=== PATIENT | female | born 1950 | race Caucasian/White ===

== ENCOUNTER 2020-04-29 17:05 | Observation (INO) ==
[2020-04-29 18:20] LABS: Basophils # 0.1 K/mcL (0.0-0.2); Basophils % 0.3 %; Eosinophils # 0.3 K/mcL (0.0-0.6); Eosinophils % 1.8 %; Hematocrit 37.2 % (35.3-44.9); Hemoglobin 11.8 g/dL (11.5-15.4); Immature Granulocytes % 0.8 % (0-4); Lymphocytes # 1.7 K/mcL (0.6-4.6); Lymphocytes % 11.6 %; Mean Corpuscular HGB Conc 31.7 g/dL (31.6-35.5); Mean Corpuscular Hemoglobin 26.8 pg (28.0-33.3); Mean Corpuscular Volume 84.5 fL (83.0-100.0); Mean Platelet Volume 9.9 fL (9.4-12.4); Monocytes # 1.5 K/mcL (0.0-1.3); Monocytes % 10.5 %; Neutrophils # 10.9 K/mcL (1.6-8.9); Platelet Count 217 K/mcL (140-400); Red Cell Distribution Width 14.6 % (11.5-14.5); White Blood Count 14.5 K/mcL (4.3-11.1)
[2020-04-29 18:22] LABS: Amphetamine Screen,Urine Negative ng/mL (Cutoff=1000); Barbiturate Screen,Urine Negative ng/mL (Cutoff=200); Benzodiazepines Screen,Urine Negative ng/mL (Cutoff=200); Cannabinoid Screen,Urine Negative ng/mL (Cutoff = 50); Cocaine Screen,Urine Negative ng/mL (Cutoff= 300); Opiate Screen,Urine Negative ng/mL (Cutoff=300); Phencyclidine Screen,Urine Negative ng/mL (Cutoff=25)
[2020-04-29 18:32] LABS: Bilirubin,Urine Negative (Negative); Blood,Urine Trace (Negative); Clarity,Urine Clear (Clear); Color,Urine Light-Yellow (Yellow); Glucose,Urine (UA) Normal (Normal); Ketones,Urine 10 mg/dL (Negative); Leukocyte Esterase,Urine Negative (Negative); Nitrite,Urine Negative (Negative); Protein,Urine Trace mg/dL (Neg-Trace); RBC,Urine 0-3 per hpf (0-3); Squamous Epithelial Cell,Urine Few per hpf (None-Few); Urobilinogen,Urine Normal (Normal); WBC,Urine 0-3 per hpf (0-3)
[2020-04-29 18:44] LABS: Alanine Aminotransferase 6 Units/L (7-52); Albumin 3.4 g/dL (3.5-5.7); Alkaline Phosphatase 54 Units/L (34-104); Aspartate Amino Transferase 11 Units/L (13-39); BUN/Creatinine Ratio 17 (6-26); Bilirubin,Direct 0.2 mg/dL (0.0-0.2); Bilirubin,Indirect 1.1 mg/dL (0.0-1.0); Bilirubin,Total 1.3 mg/dL (0.3-1.0); Blood Urea Nitrogen 18 mg/dL (8-23); Calcium 8.6 mg/dL (8.6-10.3); Carbon Dioxide 27 mEq/L (23-29); Chloride 98 mEq/L (98-107); Ethanol < 10 mg/dL (Less than 10); Globulin 3.3 g/dL (2.4-3.5); Glucose 195 mg/dL (70-105); Osmolality,Calculated 281 (280-300); Potassium 3.9 mEq/L (3.5-5.1); Sodium 132 mEq/L (136-145); Total Protein 6.7 g/dL (6.4-8.9); Troponin I 0.15 ng/mL (< 0.04); eGFR For African Americans > 60 (> 60); eGFR For Non-African Americans 53 (> 60)
[2020-04-29] MEDS ORDERED: Naloxone 0.4 MG/ML INJ IVP PRN ×2 (21:46→21:51)
[2020-04-29] MEDS ORDERED: Ondansetron ODT 4 MG TAB.RAPDIS SL PRN (21:46)
[2020-04-29] MEDS ORDERED: Acetaminophen 325 MG TABLET PO PRN (21:46)
[2020-04-29] MEDS ORDERED: *HR* Heparin 5,000 UNIT/ML VIAL IVP ONE (21:51)
[2020-04-29] MEDS ORDERED: *HR* Heparin 5,000 UNIT/ML VIAL IVP PRN ×2 (21:51)
[2020-04-29] MEDS ORDERED: Perflutren Lipid Microsphere 1.3 ML in 0.9 % Sodium Chloride 8.7 ML IVP PRN (21:58)
[2020-04-29] MEDS ORDERED: Heparin 25,000UNIT/250ML 1/2NS 25,000 UNIT/250 ML IV.SOLN IVC SCH (22:00)
[2020-04-29] MEDS ORDERED: *HR* Dextrose 50 % in Water (Vial) 50 ML VIAL IVP PRN (22:06)
[2020-04-29] MEDS ORDERED: D5% in Water 1,000 ML IVC PRN (22:06)
[2020-04-29] MEDS ORDERED: Dextrose Gel 15 GM/37.5 ML TUBE PO PRN ×2 (22:06)
[2020-04-29 22:25] LABS: Hematocrit 36.5 % (35.3-44.9); Hemoglobin 11.7 g/dL (11.5-15.4); Mean Corpuscular HGB Conc 32.1 g/dL (31.6-35.5); Mean Corpuscular Hemoglobin 26.9 pg (28.0-33.3); Mean Corpuscular Volume 83.9 fL (83.0-100.0); Platelet Count 211 K/mcL (140-400); Red Blood Count 4.35 M/mcL (3.82-4.97); Red Cell Distribution Width 14.5 % (11.5-14.5)
[2020-04-29 22:35] LABS: Estimated Average Glucose 169 mg/dl
[2020-04-29 22:43] LABS: INR 2.4; Prothrombin Time 27.6 Seconds (9.4-12.1)
[2020-04-29 22:51] LABS: Heparin anti-factor XA UFH 1.96 IU/mL (0.30-0.70)
[2020-04-29] MEDS: Insulin LISPRO 300 UNITS/3 ML VIAL SQ SCH (23:49)
[2020-04-30 02:20] LABS: Basophils % 0.3 %; Eosinophils # 0.2 K/mcL (0.0-0.6); Eosinophils % 1.8 %; Hematocrit 35.3 % (35.3-44.9); Immature Granulocytes % 0.9 % (0-4); Lymphocytes # 1.6 K/mcL (0.6-4.6); Lymphocytes % 12.3 %; Mean Corpuscular HGB Conc 31.2 g/dL (31.6-35.5); Mean Corpuscular Hemoglobin 25.8 pg (28.0-33.3); Mean Corpuscular Volume 82.7 fL (83.0-100.0); Mean Platelet Volume 9.9 fL (9.4-12.4); Monocytes # 1.2 K/mcL (0.0-1.3); Monocytes % 9.8 %; Neutrophils # 9.5 K/mcL (1.6-8.9); Platelet Count 193 K/mcL (140-400); Red Blood Count 4.27 M/mcL (3.82-4.97); Red Cell Distribution Width 14.4 % (11.5-14.5); Segmented Neutrophils % 74.9 %; White Blood Count 12.7 K/mcL (4.3-11.1)
[2020-04-30 02:25] LABS: INR 2.3; Prothrombin Time 25.8 Seconds (9.4-12.1)
[2020-04-30 02:46] LABS: BUN/Creatinine Ratio 17 (6-26); Blood Urea Nitrogen 16 mg/dL (8-23); Calcium 8.1 mg/dL (8.6-10.3); Carbon Dioxide 27 mEq/L (23-29); Chloride 99 mEq/L (98-107); Glucose 178 mg/dL (70-105); Osmolality,Calculated 286 (280-300); Phosphorous 1.6 mg/dL (2.7-4.5); Potassium 3.6 mEq/L (3.5-5.1); Sodium 135 mEq/L (136-145); eGFR For African Americans > 60 (> 60); eGFR For Non-African Americans 58 (> 60)
[2020-04-30] MEDS: 0.9 % Sodium Chloride 1,000 ML IVC SCH ×2 (03:05→14:06)
[2020-04-30] MEDS: Insulin LISPRO 300 UNITS/3 ML VIAL SQ SCH ×5 (07:47→21:04)
[2020-04-30] MEDS ORDERED: Furosemide 40 MG TABLET PO SCH (09:00)
[2020-04-30] MEDS ORDERED: lisinopriL 20 MG TABLET PO SCH (09:15)
[2020-04-30] MEDS ORDERED: lisinopriL 20 MG TABLET PO ONE (11:39)
[2020-04-30] MEDS: *HR* Rivaroxaban 10 MG TABLET PO SCH (11:56)
[2020-04-30] MEDS ORDERED: Furosemide 40 MG/4 ML VIAL IVP ONE (15:29)
[2020-04-30] MEDS: *HR* OxyCODONE Immed Rel 5 MG TABLET PO PRN (17:10)
[2020-05-01 05:23] LABS: Basophils % 0.3 %; Eosinophils # 0.5 K/mcL (0.0-0.6); Eosinophils % 3.7 %; Hematocrit 36.1 % (35.3-44.9); Hemoglobin 11.2 g/dL (11.5-15.4); Immature Granulocytes % 0.7 % (0-4); Lymphocytes # 1.7 K/mcL (0.6-4.6); Lymphocytes % 12.9 %; Mean Platelet Volume 9.7 fL (9.4-12.4); Monocytes # 1.3 K/mcL (0.0-1.3); Monocytes % 9.6 %; Neutrophils # 9.5 K/mcL (1.6-8.9); Platelet Count 234 K/mcL (140-400); Red Cell Distribution Width 14.6 % (11.5-14.5); Segmented Neutrophils % 72.8 %
[2020-05-01 05:41] LABS: Calcium 8.3 mg/dL (8.6-10.3); Phosphorous 2.7 mg/dL (2.7-4.5); Potassium 3.7 mEq/L (3.5-5.1)
[2020-05-01] MEDS: Furosemide 40 MG TABLET PO SCH ×2 (06:05→17:30)
[2020-05-01] MEDS: lisinopriL 20 MG TABLET PO SCH (08:23)
[2020-05-01] MEDS: *HR* Rivaroxaban 10 MG TABLET PO SCH (08:23)
[2020-05-01] MEDS: Insulin LISPRO 300 UNITS/3 ML VIAL SQ SCH ×4 (09:53→20:36)
[2020-05-01] MEDS: *HR* OxyCODONE Immed Rel 5 MG TABLET PO PRN (17:31)
[2020-05-02] MEDS: *HR* OxyCODONE Immed Rel 5 MG TABLET PO PRN (00:45)
[2020-05-02] MEDS ORDERED: *HR* OxyCODONE Immed Rel 5 MG TABLET PO ONE (04:37)
[2020-05-02 06:26] VITALS: BP 163/68
[2020-05-02] MEDS: Furosemide 40 MG TABLET PO SCH (08:19)
[2020-05-02] MEDS: lisinopriL 20 MG TABLET PO SCH (08:19)
[2020-05-02] MEDS: *HR* Rivaroxaban 10 MG TABLET PO SCH (08:20)
[2020-05-02] MEDS: Insulin LISPRO 300 UNITS/3 ML VIAL SQ SCH ×2 (08:20→12:30)
== END 2020-05-02 13:09 | disposition home or self-care (01) ==
LOC: EMEROOARM 17:05 → 3BNU 17:05 → SUATTDRO 21:09 → 3BNU 21:40
PROVIDERS: ADMIT Family Medicine; ATTEND Internal Medicine

== ENCOUNTER 2022-02-10 15:33 | Inpatient (IN) ==
[2022-02-10] MEDS ORDERED: Ondansetron 4 MG/2 ML VIAL IVP PRN (19:47)
[2022-02-10] MEDS ORDERED: Naloxone 0.4 MG/ML INJ IVP PRN (19:47)
[2022-02-10] MEDS ORDERED: Ipratropium/Albuterol Neb 3 ML IH PRN (19:50)
[2022-02-10] MEDS ORDERED: *HR* Dextrose 50 % in Water (Syg) 50 ML SYRINGE IVP PRN (19:51)
[2022-02-10] MEDS ORDERED: Dextrose Gel 15 GM/37.5 ML TUBE PO PRN ×2 (19:51)
[2022-02-10] MEDS ORDERED: D5% in Water 1,000 ML IVC PRN (19:51)
[2022-02-10] MEDS ORDERED: Ringers Solution, Lactated 1,000 ML IVC SCH (20:00)
[2022-02-10] MEDS: Insulin LISPRO 300 UNITS/3 ML VIAL SUBQ SCH (20:28)
[2022-02-10] MEDS: Ringers Solution, Lactated 1,000 ML IVC SCH (21:11)
[2022-02-11 00:36] LABS: Basophils % 0.1 %; Hematocrit 31.3 % (35.3-44.9); Hemoglobin 9.3 g/dL (11.5-15.4); Immature Granulocytes % 1.5 % (0-4); Lymphocytes % 4.2 %; Mean Corpuscular HGB Conc 29.7 g/dL (31.6-35.5); Mean Corpuscular Hemoglobin 26.1 pg (28.0-33.3); Mean Corpuscular Volume 87.9 fL (83.0-100.0); Mean Platelet Volume 10.1 fL (9.4-12.4); Monocytes # 2.1 K/mcL (0.0-1.3); Monocytes % 9.4 %; Neutrophils # 19.3 K/mcL (1.6-8.9); Platelet Count 214 K/mcL (140-400); Red Blood Count 3.56 M/mcL (3.82-4.97); Red Cell Distribution Width 15.1 % (11.5-14.5); Segmented Neutrophils % 84.8 %; White Blood Count 22.7 K/mcL (4.3-11.1)
[2022-02-11 00:42] LABS: VBG Base Excess 2 mEq/L; VBG Chloride 98 mEq/L (98-107); VBG Glucose 190 mg/dl (65-95); VBG HCO3 30 mEq/L (21-27); VBG Ionized Calcium 1.19 mmol/L (1.15-1.35); VBG Oxygen Saturation 88 %; VBG PCO2 67 mmHg (41-51); VBG PH 7.26 pH Units (7.32-7.42); VBG PO2 65 mmHg (25-50); VBG Total CO2 32 mEq/L
[2022-02-11 00:49] LABS: Bilirubin,Direct 0.3 mg/dL (0.0-0.2); Bilirubin,Indirect 0.9 mg/dL (0.0-1.0); Bilirubin,Total 1.2 mg/dL (0.3-1.0); Calcium 8.4 mg/dL (8.6-10.3); Globulin 2.9 g/dL (2.4-3.5); Magnesium 1.9 mg/dL (1.6-2.6); Phosphorous 4.6 mg/dL (2.7-4.5); Total Protein 5.9 g/dL (6.4-8.9); Troponin I 0.03 ng/mL (< 0.04)
[2022-02-11 01:02] LABS: Thyroid Stimulating Hormone 1.342 mcIU/mL (0.340-5.600)
[2022-02-11 01:03] LABS: INR 1.4; Prothrombin Time 15.3 Seconds (9.4-12.1)
[2022-02-11 01:18] LABS: Adenovirus Not Detected (Not Detect); Bordetella Pertussis Not Detected (Not Detect); Chlamydophila pneumoniae Not Detected (Not Detect); Coronavirus 229E Not Detected (Not Detect); Coronavirus HKU1 Not Detected (Not Detect); Coronavirus NL63 Not Detected (Not Detect); Coronavirus OC43 Not Detected (Not Detect); Human Metapneumovirus Not Detected (Not Detect); Human Rhinovirus/Enterovirus Not Detected (Not Detect); Influenza A Subtype 2009 H1 Not Detected (Not Detect); Influenza B Not Detected (Not Detect); Mycoplasma pneumoniae Not Detected (Not Detect); Parainfluenza Virus 1 Not Detected (Not Detect); Parainfluenza Virus 2 Not Detected (Not Detect); Parainfluenza Virus 3 Not Detected (Not Detect); Parainfluenza Virus 4 Not Detected (Not Detect); Respiratory Syncytial Virus Not Detected (Not Detect); SARS-CoV-2 Not Detected (Not Detect)
[2022-02-11 03:58] LABS: Estimated Average Glucose 206 mg/dl; Hemoglobin A1C 8.8 %
[2022-02-11] MEDS: Cefepime HCl 2,000 MG in 0.9 % Sodium Chloride Mini Bag 100 ML IVPB SCH ×2 (05:26→16:40)
[2022-02-11] MEDS ORDERED: 0.9 % Sodium Chloride 500 ML IVC ONE (05:45)
[2022-02-11] MEDS: Anastrozole 1 MG TABLET PO SCH (08:11)
[2022-02-11] MEDS: Insulin LISPRO 300 UNITS/3 ML VIAL SUBQ SCH ×3 (08:14→16:48)
[2022-02-11] MEDS: Ringers Solution, Lactated 1,000 ML IVC SCH (08:49)
[2022-02-11] MEDS: Acetaminophen 325 MG TABLET PO PRN (16:41)
[2022-02-12] MEDS: Cefepime HCl 2,000 MG in 0.9 % Sodium Chloride Mini Bag 100 ML IVPB SCH ×2 (05:52→17:14)
[2022-02-12] MEDS: Insulin LISPRO 300 UNITS/3 ML VIAL SUBQ SCH ×3 (09:07→17:14)
[2022-02-12] MEDS: MetroNIDAZOLE 500 MG/100 ML 500 MG/100 ML BAG IVPB SCH ×3 (09:07→23:53)
[2022-02-12] MEDS: Anastrozole 1 MG TABLET PO SCH (09:07)
[2022-02-12 09:17] LABS: Basophils % 0.1 %; Eosinophils % 0.1 %; Hematocrit 31.9 % (35.3-44.9); Hemoglobin 9.8 g/dL (11.5-15.4); Immature Granulocytes % 3.7 % (0-4); Lymphocytes % 3.3 %; Mean Corpuscular HGB Conc 30.7 g/dL (31.6-35.5); Mean Corpuscular Hemoglobin 25.9 pg (28.0-33.3); Mean Corpuscular Volume 84.2 fL (83.0-100.0); Mean Platelet Volume 10.6 fL (9.4-12.4); Monocytes # 2.5 K/mcL (0.0-1.3); Monocytes % 8.2 %; Neutrophils # 25.9 K/mcL (1.6-8.9); Platelet Count 255 K/mcL (140-400); Red Blood Count 3.79 M/mcL (3.82-4.97); Red Cell Distribution Width 15.3 % (11.5-14.5); Segmented Neutrophils % 84.6 %
[2022-02-12 09:31] LABS: Calcium 8.4 mg/dL (8.6-10.3); Potassium 5.2 mEq/L (3.5-5.1)
[2022-02-12 09:43] LABS: White Blood Count 30.6 K/mcL (4.3-11.1)
[2022-02-12 09:46] LABS: Platelet Estimate Normal (Normal)
[2022-02-12] MEDS ORDERED: 0.9 % Sodium Chloride 1,000 ML IVC SCH (11:15)
[2022-02-12] MEDS: Acetaminophen 325 MG TABLET PO PRN (12:27)
[2022-02-13] MEDS: Cefepime HCl 2,000 MG in 0.9 % Sodium Chloride Mini Bag 100 ML IVPB SCH ×2 (05:54→16:46)
[2022-02-13 06:19] LABS: Hemoglobin 9.6 g/dL (11.5-15.4); Mean Corpuscular Hemoglobin 26.2 pg (28.0-33.3); Mean Corpuscular Volume 84.5 fL (83.0-100.0); Mean Platelet Volume 10.5 fL (9.4-12.4); Platelet Count 243 K/mcL (140-400); Red Blood Count 3.67 M/mcL (3.82-4.97); White Blood Count 27.3 K/mcL (4.3-11.1)
[2022-02-13 06:37] LABS: Calcium 8.1 mg/dL (8.6-10.3); Potassium 5.8 mEq/L (3.5-5.1)
[2022-02-13 06:38] LABS: Lymphocytes # 0.6 K/mcL (0.6-4.6); Monocytes # 1.6 K/mcL (0.0-1.3); Neutrophils # 25.1 K/mcL (1.6-8.9)
[2022-02-13 06:39] LABS: Platelet Estimate Normal (Normal)
[2022-02-13] MEDS: Insulin LISPRO 300 UNITS/3 ML VIAL SUBQ SCH ×3 (08:43→16:46)
[2022-02-13] MEDS: Anastrozole 1 MG TABLET PO SCH (08:43)
[2022-02-13] MEDS: Acetaminophen 325 MG TABLET PO PRN (08:43)
[2022-02-13] MEDS: MetroNIDAZOLE 500 MG/100 ML 500 MG/100 ML BAG IVPB SCH ×2 (08:43→16:46)
[2022-02-13] MEDS ORDERED: 0.9 % Sodium Chloride 500 ML ONE (11:18)
[2022-02-13] MEDS: *HR* OxyCODONE Immed Rel 5 MG TABLET PO PRN (12:57)
[2022-02-13] MEDS ORDERED: SODIUM ZIRCONIUM CYCLOSILICATE 5 GM POWD.PACK PO ONE (16:07)
[2022-02-14] MEDS: MetroNIDAZOLE 500 MG/100 ML 500 MG/100 ML BAG IVPB SCH ×3 (00:05→15:30)
[2022-02-14] MEDS: Cefepime HCl 2,000 MG in 0.9 % Sodium Chloride Mini Bag 100 ML IVPB SCH ×2 (05:45→17:11)
[2022-02-14] MEDS: Anastrozole 1 MG TABLET PO SCH (07:48)
[2022-02-14] MEDS: Insulin LISPRO 300 UNITS/3 ML VIAL SUBQ SCH ×3 (07:50→17:12)
[2022-02-14 08:52] LABS: Basophils % 0.2 %; Immature Granulocytes % 1.1 % (0-4); Mean Platelet Volume 10.3 fL (9.4-12.4)
[2022-02-14 08:55] LABS: Eosinophils # 0.7 K/mcL (0.0-0.6); Eosinophils % 3.2 %; Hematocrit 29.6 % (35.3-44.9); Hemoglobin 9.3 g/dL (11.5-15.4); Lymphocytes # 1.1 K/mcL (0.6-4.6); Lymphocytes % 5.4 %; Mean Corpuscular HGB Conc 31.4 g/dL (31.6-35.5); Mean Corpuscular Hemoglobin 25.8 pg (28.0-33.3); Mean Corpuscular Volume 82.2 fL (83.0-100.0); Monocytes # 2.3 K/mcL (0.0-1.3); Monocytes % 10.9 %; Neutrophils # 16.4 K/mcL (1.6-8.9); Platelet Count 291 K/mcL (140-400); Red Cell Distribution Width 14.8 % (11.5-14.5); Segmented Neutrophils % 79.2 %; White Blood Count 20.7 K/mcL (4.3-11.1)
[2022-02-14 09:00] LABS: Calcium 8.3 mg/dL (8.6-10.3); Potassium 5.1 mEq/L (3.5-5.1)
[2022-02-14] MEDS: amLODIPine 5 MG TABLET PO SCH (15:30)
[2022-02-14] MEDS: *HR* OxyCODONE Immed Rel 5 MG TABLET PO PRN (21:40)
[2022-02-15] MEDS: MetroNIDAZOLE 500 MG/100 ML 500 MG/100 ML BAG IVPB SCH ×3 (00:20→18:33)
[2022-02-15] MEDS: Cefepime HCl 2,000 MG in 0.9 % Sodium Chloride Mini Bag 100 ML IVPB SCH ×2 (05:35→18:33)
[2022-02-15] MEDS: Anastrozole 1 MG TABLET PO SCH (10:24)
[2022-02-15] MEDS: Insulin LISPRO 300 UNITS/3 ML VIAL SUBQ SCH ×3 (10:24→18:33)
[2022-02-15] MEDS: amLODIPine 5 MG TABLET PO SCH (10:24)
[2022-02-15 11:01] VITALS: BP 170/65; PULSE 63; TEMP 97.6; O2SAT 100
[2022-02-15 11:08] LABS: Calcium 8.4 mg/dL (8.6-10.3); Potassium 4.6 mEq/L (3.5-5.1)
[2022-02-15 11:20] LABS: Basophils % 0.2 %; Eosinophils # 0.7 K/mcL (0.0-0.6); Eosinophils % 4.1 %; Hemoglobin 9.3 g/dL (11.5-15.4); Immature Granulocytes % 1.2 % (0-4); Lymphocytes # 0.9 K/mcL (0.6-4.6); Lymphocytes % 5.1 %; Mean Corpuscular Hemoglobin 25.4 pg (28.0-33.3); Mean Corpuscular Volume 84.7 fL (83.0-100.0); Mean Platelet Volume 10.3 fL (9.4-12.4); Monocytes % 11.9 %; Neutrophils # 13.3 K/mcL (1.6-8.9); Platelet Count 333 K/mcL (140-400); Red Blood Count 3.66 M/mcL (3.82-4.97); Red Cell Distribution Width 14.9 % (11.5-14.5); Segmented Neutrophils % 77.5 %; White Blood Count 17.1 K/mcL (4.3-11.1)
[2022-02-15 16:17] LABS: Influenza A PCR Negative (Negative); Influenza B PCR Negative (Negative); Resp. Syncytial Virus PCR Negative (Negative); SARS-CoV-2 by PCR (In House) Negative (Negative)
== END 2022-02-15 19:48 | DRG 871 ==
LOC: 2NENU → SUATTDRO 19:47
PROVIDERS: ADMIT Pharmacist; ATTEND Internal Medicine

== ENCOUNTER 2022-02-27 13:27 | Inpatient (IN) ==
[2022-02-27] MEDS ORDERED: Iopamidol - 370 500 ML MLS IVP ONE (14:37)
[2022-02-27 15:20] LABS: Hematocrit 36.8 % (35.3-44.9); Hemoglobin 10.9 g/dL (11.5-15.4); Mean Corpuscular HGB Conc 29.6 g/dL (31.6-35.5); Mean Corpuscular Hemoglobin 25.5 pg (28.0-33.3); Mean Corpuscular Volume 86.2 fL (83.0-100.0); Mean Platelet Volume 9.5 fL (9.4-12.4); Platelet Count 238 K/mcL (140-400); Red Blood Count 4.27 M/mcL (3.82-4.97); Red Cell Distribution Width 16.1 % (11.5-14.5); White Blood Count 12.2 K/mcL (4.3-11.1)
[2022-02-27 15:33] LABS: VBG HCO3 29 mEq/L (21-27); VBG PCO2 72 mmHg (41-51); VBG PH 7.21 pH Units (7.32-7.42); VBG PO2 38 mmHg (25-50)
[2022-02-27 15:42] LABS: Alanine Aminotransferase 12 Units/L (7-52); Albumin 3.5 g/dL (3.5-5.7); Albumin/Globulin Ratio 1.1 (1.1-2.2); Alkaline Phosphatase 49 Units/L (34-104); Aspartate Amino Transferase 14 Units/L (13-39); BUN/Creatinine Ratio 8 (6-26); Bilirubin,Direct 0.2 mg/dL (0.0-0.2); Bilirubin,Indirect 0.5 mg/dL (0.0-1.0); Bilirubin,Total 0.7 mg/dL (0.3-1.0); Blood Urea Nitrogen 27 mg/dL (8-23); Calcium 9.1 mg/dL (8.6-10.3); Carbon Dioxide 31 mEq/L (23-29); Chloride 96 mEq/L (98-107); Globulin 3.3 g/dL (2.4-3.5); Glucose 220 mg/dL (70-105); Lipase 25 Units/L (11-82); Osmolality,Calculated 284 (280-300); Potassium 5.1 mEq/L (3.5-5.1); Sodium 131 mEq/L (136-145); Total Protein 6.8 g/dL (6.4-8.9); Troponin I < 0.03 ng/mL (< 0.04)
[2022-02-27] MEDS ORDERED: methylPREDNISolone 125 MG/2 ML VIAL IVP ONE (15:48)
[2022-02-27] MEDS: Ipratropium/Albuterol Neb 3 ML IH SCH (16:06)
[2022-02-27 16:59] LABS: ABG Base Excess -2 mEq/L (-2 to 3); ABG HCO3 25 mEq/L (21-27); ABG Oxygen Saturation 92 % (95-98); ABG PCO2 50 mmHg (35-45); ABG PH 7.31 pH Units (7.32-7.45); ABG PO2 69 mmHg (85-104); ABG TCO2 27 mEq/L (20-26)
[2022-02-27] MEDS ORDERED: 0.9 % Sodium Chloride 500 ML IV ONE (17:37)
[2022-02-27 18:16] LABS: Creatine Kinase 72 Units/L (30-223)
[2022-02-27 19:47] LABS: Bilirubin,Urine Negative (Negative); Blood,Urine Moderate (Negative); Clarity,Urine Turbid (Clear); Color,Urine Yellow (Yellow); Glucose,Urine (UA) 30 mg/dL (Normal); Hyaline Casts,Urine Many per lpf (None Seen); Ketones,Urine Negative (Negative); Leukocyte Esterase,Urine Negative (Negative); Mucus,Urine Few per lpf (None-Few); Nitrite,Urine Negative (Negative); Protein,Urine 50 mg/dL (Neg-Trace); RBC,Urine 30-50 per hpf (0-3); Specific Gravity,Urine 1.018 (1.010-1.025); Squamous Epithelial Cell,Urine Few per hpf (None-Few); Urobilinogen,Urine Normal (Normal)
[2022-02-27] MEDS ORDERED: Naloxone 0.4 MG/ML INJ IVP PRN (20:37)
[2022-02-27] MEDS ORDERED: D5% in Water 1,000 ML IVC PRN (20:37)
[2022-02-27] MEDS ORDERED: Dextrose Gel 15 GM/37.5 ML TUBE PO PRN ×2 (20:37)
[2022-02-27] MEDS ORDERED: *HR* Dextrose 50 % in Water (Syg) 50 ML SYRINGE IVP PRN (20:37)
[2022-02-27] MEDS ORDERED: Ondansetron ODT 4 MG TAB.RAPDIS SL PRN (20:37)
[2022-02-27 21:10] LABS: Protein/Creatinine Ratio,Urine 0.26 mg/mg (0.00-0.20); Sodium, Urine 19.6 mEq/L
[2022-02-27] MEDS ORDERED: Ringers Solution, Lactated 500 ML IVC ONE (22:52)
[2022-02-27] MEDS: Insulin LISPRO 300 UNITS/3 ML VIAL SUBQ SCH (23:30)
[2022-02-27 23:45] LABS: ABG Base Excess -3 mEq/L (-2 to 3); ABG HCO3 24 mEq/L (21-27); ABG Oxygen Saturation 97 % (95-98); ABG PCO2 55 mmHg (35-45); ABG PH 7.26 pH Units (7.32-7.45); ABG PO2 101 mmHg (85-104); ABG TCO2 26 mEq/L (20-26); Blood Gas Modality S/T
[2022-02-27] MEDS: Albuterol 2.5 MG/3 ML NEBULIZER IH PRN (23:46)
[2022-02-28] MEDS: Ringers Solution, Lactated 1,000 ML IVC SCH (00:06)
[2022-02-28] MEDS: Albumin Human 5% 12.5 GM/250 ML IV.SOLN IVC SCH ×2 (01:06→05:22)
[2022-02-28 03:14] LABS: Basophils % 0.1 %; Hematocrit 34.7 % (35.3-44.9); Hemoglobin 10.4 g/dL (11.5-15.4); Immature Granulocytes % 0.6 % (0-4); Lymphocytes # 0.7 K/mcL (0.6-4.6); Lymphocytes % 7.2 %; Mean Corpuscular Hemoglobin 25.6 pg (28.0-33.3); Mean Corpuscular Volume 85.3 fL (83.0-100.0); Mean Platelet Volume 9.9 fL (9.4-12.4); Monocytes # 0.1 K/mcL (0.0-1.3); Monocytes % 0.6 %; Neutrophils # 9.1 K/mcL (1.6-8.9); Platelet Count 222 K/mcL (140-400); Red Blood Count 4.07 M/mcL (3.82-4.97); Red Cell Distribution Width 15.8 % (11.5-14.5); Segmented Neutrophils % 91.5 %; White Blood Count 9.9 K/mcL (4.3-11.1)
[2022-02-28 03:36] LABS: Albumin 3.2 g/dL (3.5-5.7); Albumin/Globulin Ratio 1.1 (1.1-2.2); Bilirubin,Total 0.6 mg/dL (0.3-1.0); Calcium 8.6 mg/dL (8.6-10.3); Phosphorous 6.7 mg/dL (2.7-4.5); Potassium 5.3 mEq/L (3.5-5.1); Total Protein 6.2 g/dL (6.4-8.9)
[2022-02-28] MEDS: *HR* Heparin 5,000 UNIT/ML VIAL SQ SCH ×2 (05:23→18:01)
[2022-02-28] MEDS: Insulin LISPRO 300 UNITS/3 ML VIAL SUBQ SCH ×4 (09:00→20:55)
[2022-02-28] MEDS: SODIUM ZIRCONIUM CYCLOSILICATE 5 GM POWD.PACK PO SCH (09:00)
[2022-02-28] MEDS: Anastrozole 1 MG TABLET PO SCH (09:00)
[2022-02-28 16:10] LABS: Calcium 8.7 mg/dL (8.6-10.3); Potassium 5.1 mEq/L (3.5-5.1)
[2022-03-01] MEDS: *HR* Heparin 5,000 UNIT/ML VIAL SQ SCH ×2 (06:30→17:15)
[2022-03-01 06:32] LABS: Basophils % 0.1 %; Eosinophils % 0.1 %; Hematocrit 29.6 % (35.3-44.9); Hemoglobin 9.3 g/dL (11.5-15.4); Immature Granulocytes % 0.7 % (0-4); Lymphocytes # 0.8 K/mcL (0.6-4.6); Lymphocytes % 5.3 %; Mean Corpuscular HGB Conc 31.4 g/dL (31.6-35.5); Mean Corpuscular Hemoglobin 26.4 pg (28.0-33.3); Mean Corpuscular Volume 84.1 fL (83.0-100.0); Mean Platelet Volume 9.8 fL (9.4-12.4); Monocytes % 6.3 %; Neutrophils # 13.7 K/mcL (1.6-8.9); Platelet Count 202 K/mcL (140-400); Red Blood Count 3.52 M/mcL (3.82-4.97); Red Cell Distribution Width 15.9 % (11.5-14.5); Segmented Neutrophils % 87.5 %
[2022-03-01 06:33] LABS: White Blood Count 15.7 K/mcL (4.3-11.1)
[2022-03-01 06:51] LABS: Albumin 3.3 g/dL (3.5-5.7); Albumin/Globulin Ratio 1.3 (1.1-2.2); Bilirubin,Total 0.4 mg/dL (0.3-1.0); Calcium 8.6 mg/dL (8.6-10.3); Globulin 2.6 g/dL (2.4-3.5); Potassium 5.1 mEq/L (3.5-5.1); Total Protein 5.9 g/dL (6.4-8.9)
[2022-03-01] MEDS: SODIUM ZIRCONIUM CYCLOSILICATE 5 GM POWD.PACK PO SCH (10:25)
[2022-03-01] MEDS: Anastrozole 1 MG TABLET PO SCH (10:25)
[2022-03-01] MEDS: Insulin LISPRO 300 UNITS/3 ML VIAL SUBQ SCH ×4 (10:26→20:52)
[2022-03-01] MEDS: 0.9 % Sodium Chloride 1,000 ML IVC SCH ×2 (10:26→20:52)
[2022-03-01] MEDS: Insulin DETEMIR 100 UNIT/ML X5UNITS SUBQ SCH (20:51)
[2022-03-02 04:12] LABS: Basophils % 0.1 %; Eosinophils # 0.2 K/mcL (0.0-0.6); Eosinophils % 1.2 %; Hematocrit 30.7 % (35.3-44.9); Hemoglobin 9.4 g/dL (11.5-15.4); Immature Granulocytes % 0.6 % (0-4); Lymphocytes % 6.7 %; Mean Corpuscular HGB Conc 30.6 g/dL (31.6-35.5); Mean Corpuscular Hemoglobin 25.6 pg (28.0-33.3); Mean Corpuscular Volume 83.7 fL (83.0-100.0); Mean Platelet Volume 9.9 fL (9.4-12.4); Monocytes # 1.4 K/mcL (0.0-1.3); Monocytes % 9.7 %; Platelet Count 198 K/mcL (140-400); Red Blood Count 3.67 M/mcL (3.82-4.97); Segmented Neutrophils % 81.7 %; White Blood Count 14.7 K/mcL (4.3-11.1)
[2022-03-02 04:41] LABS: Influenza A PCR Negative (Negative); Influenza B PCR Negative (Negative); Resp. Syncytial Virus PCR Negative (Negative)
[2022-03-02 05:12] LABS: SARS-CoV-2 by PCR (In House) Negative (Negative)
[2022-03-02] MEDS: *HR* Heparin 5,000 UNIT/ML VIAL SQ SCH ×2 (05:47→18:54)
[2022-03-02] MEDS: Anastrozole 1 MG TABLET PO SCH (08:08)
[2022-03-02] MEDS: SODIUM ZIRCONIUM CYCLOSILICATE 5 GM POWD.PACK PO SCH (08:09)
[2022-03-02] MEDS: Insulin LISPRO 300 UNITS/3 ML VIAL SUBQ SCH ×4 (08:09→20:41)
[2022-03-02 10:45] LABS: Calcium 8.5 mg/dL (8.6-10.3)
[2022-03-02] MEDS: 0.9 % Sodium Chloride 1,000 ML IVC SCH (12:20)
[2022-03-02] MEDS: Insulin DETEMIR 100 UNIT/ML X5UNITS SUBQ SCH (20:41)
[2022-03-03] MEDS: Ringers Solution, Lactated 1,000 ML IVC SCH (01:13)
[2022-03-03 03:22] LABS: Hematocrit 30.3 % (35.3-44.9); Hemoglobin 9.5 g/dL (11.5-15.4); Mean Corpuscular HGB Conc 31.4 g/dL (31.6-35.5); Mean Corpuscular Hemoglobin 26.3 pg (28.0-33.3); Mean Corpuscular Volume 83.9 fL (83.0-100.0); Platelet Count 169 K/mcL (140-400); Red Blood Count 3.61 M/mcL (3.82-4.97); Red Cell Distribution Width 16.3 % (11.5-14.5); White Blood Count 12.2 K/mcL (4.3-11.1)
[2022-03-03 03:44] LABS: Calcium 8.6 mg/dL (8.6-10.3)
[2022-03-03] MEDS: 0.9 % Sodium Chloride 1,000 ML IVC SCH (04:53)
[2022-03-03] MEDS: *HR* Heparin 5,000 UNIT/ML VIAL SQ SCH ×2 (05:26→19:38)
[2022-03-03 06:02] LABS: ABG Base Excess 0 mEq/L (-2 to 3); ABG HCO3 25 mEq/L (21-27); ABG Oxygen Saturation 89 % (95-98); ABG PCO2 43 mmHg (35-45); ABG PH 7.37 pH Units (7.32-7.45); ABG PO2 59 mmHg (85-104); ABG TCO2 27 mEq/L (20-26)
[2022-03-03] MEDS: Insulin LISPRO 300 UNITS/3 ML VIAL SUBQ SCH ×4 (08:45→20:52)
[2022-03-03] MEDS: Anastrozole 1 MG TABLET PO SCH (08:46)
[2022-03-03] MEDS: amLODIPine 5 MG TABLET PO SCH ×2 (12:15→19:37)
[2022-03-03] MEDS: Melatonin 3 MG TABLET PO PRN (19:37)
[2022-03-03] MEDS: Insulin DETEMIR 100 UNIT/ML X5UNITS SUBQ SCH (22:46)
[2022-03-03] MEDS ORDERED: *HR* LORazepam 2 MG/ML VIAL IVP ONE (23:51)
[2022-03-03] MEDS ORDERED: Furosemide 20 MG/2 ML VIAL IVP ONE (23:58)
[2022-03-03] MEDS ORDERED: Ipratropium/Albuterol Neb 3 ML IH ONE (23:58)
[2022-03-04] MEDS ORDERED: Furosemide 20 MG/2 ML VIAL IVP ONE (00:02)
[2022-03-04 00:08] LABS: ABG Base Excess -2 mEq/L (-2 to 3); ABG HCO3 25 mEq/L (21-27); ABG Oxygen Saturation 99 % (95-98); ABG PCO2 53 mmHg (35-45); ABG PH 7.29 pH Units (7.32-7.45); ABG PO2 140 mmHg (85-104); ABG TCO2 27 mEq/L (20-26); Blood Gas Modality BiLevel
[2022-03-04] MEDS: *HR* Heparin 5,000 UNIT/ML VIAL SQ SCH ×2 (07:00→17:51)
[2022-03-04] MEDS: Furosemide 20 MG/2 ML VIAL IVP SCH (07:59)
[2022-03-04] MEDS: amLODIPine 5 MG TABLET PO SCH ×2 (07:59→23:06)
[2022-03-04] MEDS: Anastrozole 1 MG TABLET PO SCH (07:59)
[2022-03-04] MEDS: Insulin LISPRO 300 UNITS/3 ML VIAL SUBQ SCH ×4 (08:00→23:06)
[2022-03-04 09:59] LABS: Hemoglobin 8.3 g/dL (11.5-15.4); Mean Corpuscular HGB Conc 30.7 g/dL (31.6-35.5); Mean Corpuscular Volume 84.6 fL (83.0-100.0); Mean Platelet Volume 9.8 fL (9.4-12.4); Platelet Count 156 K/mcL (140-400); Red Blood Count 3.19 M/mcL (3.82-4.97); Red Cell Distribution Width 16.4 % (11.5-14.5); White Blood Count 11.2 K/mcL (4.3-11.1)
[2022-03-04 10:19] LABS: Calcium 8.6 mg/dL (8.6-10.3); Potassium 5.4 mEq/L (3.5-5.1)
[2022-03-04] MEDS ORDERED: levoFLOXacin 750 MG/150 ML 750 MG/150 ML BAG IVPB ONE (11:33)
[2022-03-04 11:51] LABS: ABG Base Excess 2 mEq/L (-2 to 3); ABG HCO3 28 mEq/L (21-27); ABG Oxygen Saturation 99 % (95-98); ABG PCO2 44 mmHg (35-45); ABG PO2 147 mmHg (85-104); ABG TCO2 29 mEq/L (20-26)
[2022-03-04] MEDS: Insulin DETEMIR 100 UNIT/ML X5UNITS SUBQ SCH (23:05)
[2022-03-04] MEDS: Acetaminophen 325 MG TABLET PO PRN (23:07)
[2022-03-04] MEDS: Melatonin 3 MG TABLET PO PRN (23:07)
[2022-03-05] MEDS: *HR* Heparin 5,000 UNIT/ML VIAL SQ SCH ×2 (05:49→18:02)
[2022-03-05] MEDS: Anastrozole 1 MG TABLET PO SCH (08:00)
[2022-03-05] MEDS: amLODIPine 5 MG TABLET PO SCH ×2 (08:00→21:00)
[2022-03-05] MEDS: Furosemide 20 MG/2 ML VIAL IVP SCH (08:01)
[2022-03-05] MEDS: Insulin LISPRO 300 UNITS/3 ML VIAL SUBQ SCH ×4 (08:01→20:42)
[2022-03-05 08:36] LABS: Hematocrit 29.9 % (35.3-44.9); Hemoglobin 9.2 g/dL (11.5-15.4); Mean Corpuscular HGB Conc 30.8 g/dL (31.6-35.5); Mean Corpuscular Hemoglobin 26.1 pg (28.0-33.3); Mean Corpuscular Volume 84.9 fL (83.0-100.0); Mean Platelet Volume 9.4 fL (9.4-12.4); Platelet Count 180 K/mcL (140-400); Red Blood Count 3.52 M/mcL (3.82-4.97); Red Cell Distribution Width 16.6 % (11.5-14.5); White Blood Count 11.3 K/mcL (4.3-11.1)
[2022-03-05 08:57] LABS: Calcium 7.4 mg/dL (8.6-10.3); Potassium 3.9 mEq/L (3.5-5.1)
[2022-03-05] MEDS ORDERED: SODIUM ZIRCONIUM CYCLOSILICATE 5 GM POWD.PACK PO SCH (09:00)
[2022-03-05] MEDS: *HR* HYDROcodone/Acet 5/325 mg TABLET PO PRN (18:02)
[2022-03-05] MEDS: Insulin DETEMIR 100 UNIT/ML X5UNITS SUBQ SCH (21:00)
[2022-03-05] MEDS: Melatonin 3 MG TABLET PO PRN (21:01)
[2022-03-05] MEDS: Sennosides/Docusate Sodium TABLET PO SCH (21:01)
[2022-03-06 05:08] LABS: Calcium 9.5 mg/dL (8.6-10.3); Potassium 5.3 mEq/L (3.5-5.1)
[2022-03-06 05:10] LABS: Hematocrit 29.8 % (35.3-44.9); Hemoglobin 9.2 g/dL (11.5-15.4); Mean Corpuscular HGB Conc 30.9 g/dL (31.6-35.5); Mean Corpuscular Hemoglobin 26.1 pg (28.0-33.3); Mean Corpuscular Volume 84.4 fL (83.0-100.0); Mean Platelet Volume 10.1 fL (9.4-12.4); Platelet Count 192 K/mcL (140-400); Red Blood Count 3.53 M/mcL (3.82-4.97); Red Cell Distribution Width 16.6 % (11.5-14.5); White Blood Count 12.3 K/mcL (4.3-11.1)
[2022-03-06] MEDS: *HR* Heparin 5,000 UNIT/ML VIAL SQ SCH ×2 (05:59→16:35)
[2022-03-06] MEDS: Anastrozole 1 MG TABLET PO SCH (08:21)
[2022-03-06] MEDS: polyethylene glycoL 3350 17 GM POWD.PACK PO SCH (08:21)
[2022-03-06] MEDS: Insulin LISPRO 300 UNITS/3 ML VIAL SUBQ SCH ×4 (08:21→21:06)
[2022-03-06] MEDS: hydrALAZINE 25 MG TABLET PO SCH ×3 (08:21→23:40)
[2022-03-06] MEDS: Sennosides/Docusate Sodium TABLET PO SCH ×2 (08:21→20:59)
[2022-03-06] MEDS: amLODIPine 5 MG TABLET PO SCH ×2 (08:21→20:58)
[2022-03-06] MEDS: *HR* HYDROcodone/Acet 5/325 mg TABLET PO PRN ×2 (08:25→20:57)
[2022-03-06] MEDS: Acetaminophen 325 MG TABLET PO PRN ×2 (10:11→20:58)
[2022-03-06 10:55] LABS: VBG HCO3 27 mEq/L (21-27); VBG PCO2 53 mmHg (41-51); VBG PH 7.32 pH Units (7.32-7.42); VBG PO2 111 mmHg (25-50)
[2022-03-06] MEDS: levoFLOXacin 750 MG/150 ML 750 MG/150 ML BAG IVPB SCH (11:39)
[2022-03-06] MEDS ORDERED: levoFLOXacin 500 MG/100 ML 500 MG/100 ML BAG IVPB SCH (12:00)
[2022-03-06] MEDS ORDERED: amLODIPine 5 MG TABLET PO SCH (13:00)
[2022-03-06] MEDS: Furosemide 40 MG in 0.9 % Sodium Chloride 50 ML IV SCH ×2 (14:00→22:30)
[2022-03-06] MEDS: Melatonin 3 MG TABLET PO PRN (20:57)
[2022-03-06] MEDS: Insulin DETEMIR 100 UNIT/ML X5UNITS SUBQ SCH (20:59)
[2022-03-07] MEDS: *HR* Heparin 5,000 UNIT/ML VIAL SQ SCH ×2 (05:54→17:00)
[2022-03-07] MEDS: amLODIPine 5 MG TABLET PO SCH ×2 (07:44→13:53)
[2022-03-07] MEDS: Sennosides/Docusate Sodium TABLET PO SCH ×2 (07:44→21:36)
[2022-03-07] MEDS: polyethylene glycoL 3350 17 GM POWD.PACK PO SCH (07:45)
[2022-03-07] MEDS: Anastrozole 1 MG TABLET PO SCH (07:45)
[2022-03-07] MEDS: Insulin LISPRO 300 UNITS/3 ML VIAL SUBQ SCH ×4 (07:45→21:28)
[2022-03-07] MEDS ORDERED: amLODIPine 5 MG TABLET PO SCH (09:00)
[2022-03-07] MEDS: hydrALAZINE 25 MG TABLET PO SCH ×2 (09:42→17:00)
[2022-03-07] MEDS ORDERED: carvediloL 6.25 MG TABLET PO SCH (17:00)
[2022-03-07] MEDS: *HR* HYDROcodone/Acet 5/325 mg TABLET PO PRN (18:31)
[2022-03-07] MEDS: Insulin DETEMIR 100 UNIT/ML X5UNITS SUBQ SCH (22:09)
[2022-03-08] MEDS: hydrALAZINE 25 MG TABLET PO SCH ×3 (02:05→15:55)
[2022-03-08] MEDS: *HR* Heparin 5,000 UNIT/ML VIAL SQ SCH ×2 (06:16→18:31)
[2022-03-08] MEDS: polyethylene glycoL 3350 17 GM POWD.PACK PO SCH (09:30)
[2022-03-08] MEDS: Sennosides/Docusate Sodium TABLET PO SCH ×2 (09:31→20:42)
[2022-03-08] MEDS: Anastrozole 1 MG TABLET PO SCH (09:31)
[2022-03-08] MEDS: amLODIPine 5 MG TABLET PO SCH (09:32)
[2022-03-08] MEDS: Furosemide 40 MG/4 ML VIAL IVP SCH (09:33)
[2022-03-08 11:10] LABS: Hematocrit 28.7 % (35.3-44.9); Mean Corpuscular HGB Conc 31.4 g/dL (31.6-35.5); Mean Corpuscular Hemoglobin 26.2 pg (28.0-33.3); Mean Corpuscular Volume 83.7 fL (83.0-100.0); Mean Platelet Volume 9.8 fL (9.4-12.4); Platelet Count 236 K/mcL (140-400); Red Blood Count 3.43 M/mcL (3.82-4.97); Red Cell Distribution Width 16.6 % (11.5-14.5); White Blood Count 10.5 K/mcL (4.3-11.1)
[2022-03-08] MEDS: Insulin LISPRO 300 UNITS/3 ML VIAL SUBQ SCH ×4 (11:40→20:42)
[2022-03-08] MEDS: Acetaminophen 325 MG TABLET PO PRN (11:52)
[2022-03-08 11:58] LABS: Calcium 9.5 mg/dL (8.6-10.3); Phosphorous 3.9 mg/dL (2.7-4.5); Potassium 5.1 mEq/L (3.5-5.1)
[2022-03-08] MEDS: levoFLOXacin 750 MG/150 ML 750 MG/150 ML BAG IVPB SCH (12:59)
[2022-03-08] MEDS: Melatonin 3 MG TABLET PO PRN (20:42)
[2022-03-08] MEDS: Insulin DETEMIR 100 UNIT/ML X5UNITS SUBQ SCH (20:51)
[2022-03-08 23:33] VITALS: TEMP 98
[2022-03-09] MEDS: hydrALAZINE 25 MG TABLET PO SCH ×3 (01:06→16:12)
[2022-03-09 03:18] LABS: Basophils % 0.2 %; Eosinophils # 0.6 K/mcL (0.0-0.6); Eosinophils % 5.8 %; Hematocrit 28.6 % (35.3-44.9); Hemoglobin 8.6 g/dL (11.5-15.4); Lymphocytes # 0.7 K/mcL (0.6-4.6); Lymphocytes % 7.2 %; Mean Corpuscular HGB Conc 30.1 g/dL (31.6-35.5); Mean Corpuscular Hemoglobin 25.4 pg (28.0-33.3); Mean Corpuscular Volume 84.4 fL (83.0-100.0); Mean Platelet Volume 9.9 fL (9.4-12.4); Monocytes # 1.2 K/mcL (0.0-1.3); Monocytes % 12.9 %; Platelet Count 248 K/mcL (140-400); Red Blood Count 3.39 M/mcL (3.82-4.97); Red Cell Distribution Width 16.1 % (11.5-14.5); Segmented Neutrophils % 72.9 %; White Blood Count 9.6 K/mcL (4.3-11.1)
[2022-03-09 03:37] LABS: Albumin 2.9 g/dL (3.5-5.7); Calcium 9.1 mg/dL (8.6-10.3); Phosphorous 3.4 mg/dL (2.7-4.5); Potassium 4.5 mEq/L (3.5-5.1)
[2022-03-09] MEDS: Albuterol 2.5 MG/3 ML NEBULIZER IH PRN (03:58)
[2022-03-09] MEDS: *HR* Heparin 5,000 UNIT/ML VIAL SQ SCH ×2 (04:56→16:12)
[2022-03-09] MEDS: Sennosides/Docusate Sodium TABLET PO SCH (08:02)
[2022-03-09] MEDS: Anastrozole 1 MG TABLET PO SCH (08:02)
[2022-03-09] MEDS: Furosemide 40 MG/4 ML VIAL IVP SCH (08:02)
[2022-03-09] MEDS: Insulin LISPRO 300 UNITS/3 ML VIAL SUBQ SCH ×3 (08:03→16:12)
[2022-03-09] MEDS: polyethylene glycoL 3350 17 GM POWD.PACK PO SCH (08:39)
[2022-03-09] MEDS ORDERED: amLODIPine 5 MG TABLET PO SCH (09:00)
[2022-03-09 09:03] VITALS: BP 166/61; PULSE 67; O2SAT 99
[2022-03-09] MEDS ORDERED: aMILoride 5 MG TABLET PO SCH ×2 (10:00)
[2022-03-09] MEDS ORDERED: Spironolactone 25 MG TABLET PO SCH (10:00)
[2022-03-09] MEDS ORDERED: Furosemide 40 MG/4 ML VIAL IVP SCH (17:00)
== END 2022-03-09 19:00 | disposition short-term general hospital (02) | DRG 682 ==
LOC: EMEROOARM 13:27 → 3NENU 13:27 → SUATTDRO 21:53 → 3NENU 22:38
PROVIDERS: ADMIT Internal Medicine; ATTEND Internal Medicine